=== PATIENT | male | born 1995 | race African-American/Black ===

== ENCOUNTER 2020-08-21 01:00 | Emergency (ER) | payer OTHER ==
[~2020-08-21] VITALS: Ht 175.3 cm; Wt 108.1 kg
[2020-08-21 02:03] VITALS: BP 137/74
== END 2020-08-21 02:40 | disposition home or self-care (01) ==
LOC: EMS 01:04
DX: S62.141A Displaced fracture of body of hamate [unciform] bone, right wrist, initial encounter for closed fracture (principal); W22.01XA Walked into wall, initial encounter; Y93.89 Activity, other specified; Y92.89 Other specified places as the place of occurrence of the external cause; Y99.8 Other external cause status
CPT/HCPCS: 99283